=== PATIENT | male | born 1935 | race Caucasian/White ===

== ENCOUNTER 2019-01-31 15:48 | Observation (INO) | payer MEDICARE, OTHER ==
[2019-01-31] MEDS ORDERED: Sodium Chloride 0.9% 10 ML Syringe FLUSH PRN (16:27)
[2019-01-31] MEDS ORDERED: Ondansetron 4 MG Tab.DIS PO PRN (16:27)
[2019-01-31] MEDS: cefTRIAXone 1 GM Vial IVPUSH SCH (17:16)
[2019-01-31] MEDS: Enoxaparin 40 MG/0.4 ML Syringe SUBCUT SCH (17:16)
[2019-01-31 17:23] LABS: CHLORIDE,CL 98 mEq/L (98-106); SODIUM,NA 135 mEq/L (136-145)
[2019-02-01] MEDS ORDERED: Temazepam 15 MG Cap PO PRN (00:11)
[2019-02-01] MEDS ORDERED: Furosemide 20 MG Tab PO SCH (08:00)
[2019-02-01] MEDS ORDERED: Clopidogrel 75 MG Tab PO SCH (08:00)
[2019-02-01] MEDS: **PTOM** metFORMIN 500 MG Tab PO SCH (09:34)
[2019-02-01] MEDS: **PTOM** Aspirin 81 MG Tab.EC PO SCH (09:35)
[2019-02-01] MEDS: CANDESARTAN 4 MG PO SCH (09:35)
[2019-02-01] MEDS: **PTOM** Allopurinol 100 MG Tab PO SCH (09:36)
[2019-02-01] MEDS: TIMOLOL MALEATE 0.5% EYERT SCH (09:37)
[2019-02-01] MEDS: Enoxaparin 40 MG/0.4 ML Syringe SUBCUT SCH (16:35)
[2019-02-01] MEDS: cefTRIAXone 1 GM Vial IVPUSH SCH (16:36)
--- NOTE | 2019-02-01 19:02 | PCM.PN ---
- General Info Date of Service: 02/01/19 Admission Dx/Problem (Free Text): RML Pneumonia, suspect gram negative bacteria Functional Status: Reports: Pain Controlled, Tolerating Diet, Ambulating - Review of Systems General: Reports: Malaise. Denies: Fever, Weakness, Fatigue HEENT: Denies: Ear Pain, Headaches, Sinus Congestion, Rhinitis Pulmonary: Reports: Cough. Denies: Shortness of Breath Cardiovascular: Denies: Chest Pain, Edema, Lightheadedness Gastrointestinal: Denies: Abdominal Pain, Nausea, Vomiting Genitourinary: Reports: No Symptoms Musculoskeletal: Reports: No Symptoms Skin: Reports: No Symptoms Neurological: Reports: No Symptoms - Patient Data Vitals - Most Recent: Last Vital Signs Temp 98.2 F 02/01/19 16:00 Pulse 75 02/01/19 16:00 Resp 20 02/01/19 16:00 BP 168/75 H 02/01/19 16:00 Pulse Ox 95 02/01/19 16:00 Weight - Most Recent: 167 lb 4.8 oz Lab Results Last 24 Hours: Laboratory Results - last 24 hr 01/31/19 02/01/19 02/01/19 Range/Units 20:37 07:23 12:09 POC Glucose 224 H 127 H 99 (75-105) mg/dl Med Orders - Current: Current Medications Allopurinol (Zyloprim) 100 mg PO DAILY [facility] Last Admin: 02/01/19 09:36 Dose: 100 mg Aspirin (Halfprin) 81 mg PO DAILY [facility] Last Admin: 02/01/19 09:35 Dose: 81 mg Atorvastatin Calcium (Lipitor) 20 mg PO BEDTIME [facility] Ceftriaxone Sodium (Rocephin) 1 gm IVPUSH Q24H [facility] Last Admin: 02/01/19 16:36 Dose: 1 gm Enoxaparin Sodium (Lovenox) 40 mg SUBCUT Q24H [facility] Last Admin: 02/01/19 16:35 Dose: 40 mg Latanoprost (Xalatan 0.005% Ophth Soln) 0 ml EYEBOTH BEDTIME [facility] Metformin HCl (Glucophage) 500 mg PO DAILY [facility] Last Admin: 02/01/19 09:34 Dose: 500 mg Ptom Candesartan (4 Mg Tab) 4 mg PO DAILY [facility] Last Admin: 02/01/19 09:35 Dose: 4 mg Ondansetron HCl (Zofran Odt) 4 mg PO Q4H PRN PRN Reason: nausea, able to take PO Sodium Chloride (Saline Flush) 10 ml FLUSH ASDIRECTED PRN PRN Reason: Keep Vein Open Temazepam (Restoril) 15 mg PO BEDTIME PRN PRN Reason: Insomnia Last Admin: 02/01/19 00:22 Dose: 15 mg Timolol Maleate (Timoptic 0.5% Ophth Soln) 0 ml EYERT DAILY [facility] Last Admin: 02/01/19 09:37 Dose: 1 drop Discontinued Medications Clopidogrel Bisulfate (Plavix) 75 mg PO DAILY [facility] Last Admin: 02/01/19 09:39 Dose: Not Given Furosemide (Lasix) 20 mg PO DAILY [facility] Last Admin: 02/01/19 09:39 Dose: Not Given - Exam General: Alert, Oriented HEENT: Mucous Membr. Moist/Azure Neck: Supple Lungs: Decreased Breath Sounds, Crackles (RLL, RML) Cardiovascular: Regular Rate, Regular Rhythm GI/Abdominal Exam: Normal Bowel Sounds, Soft, Non-Tender Extremities: Normal Inspection, No Pedal Edema Skin: Warm, Dry Neurological: No New Focal Deficit - Problem List & Annotations (1) RML pneumonia SNOMED Code(s): 453273345 Code(s): J18.1 - LOBAR PNEUMONIA, UNSPECIFIED ORGANISM Status: Acute Priority: High Current Visit: Yes Qualifiers: Pneumonia type: due to other aerobic Gram-negative bacteria Qualified Code( s): J15.6 - Pneumonia due to other Gram-negative bacteria - Problem List Review Problem List Initiated/Reviewed/Updated: Yes - My Orders Last 24 Hours: My Active Orders 02/02/19 05:11 BASIC METABOLIC PANEL,BMP [CHEM] AM C-REACTIVE PROTEIN [CHEM] AM CBC WITH AUTO DIFF [HEME] AM - Assessment Assessment:: RML Pneumonia - Plan Plan:: Patient doing well. Is ambulating well in hallways without increased shortness of breath. He has occasional cough, nonproductive. Oxygen sats are greater than 90%. Lung sounds note fine crackles in right mid and lower lobe. Afebrile. Blood pressure is up some this am. 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 Does not take his blood pressure med due to this as well. WBC is normal at 7.6, CRP 1.2. Will continue with IV Ceftriaxone. Ambulate in halls. Probable discharge home tomorrow.
[2019-02-01] MEDS ORDERED: **PTOM** atorvaSTATin 20 MG Tab PO SCH (20:00)
[2019-02-01] MEDS ORDERED: LATANOPROST 0.005% EYEBOTH SCH (20:00)
[2019-02-02 07:20] LABS: CHLORIDE,CL 99 mEq/L (98-106); SODIUM,NA 136 mEq/L (136-145)
[2019-02-02] MEDS: TIMOLOL MALEATE 0.5% EYERT SCH (07:45)
[2019-02-02] MEDS: **PTOM** Aspirin 81 MG Tab.EC PO SCH (07:46)
[2019-02-02] MEDS: CANDESARTAN 4 MG PO SCH (07:46)
[2019-02-02] MEDS: **PTOM** metFORMIN 500 MG Tab PO SCH (07:46)
[2019-02-02] MEDS: **PTOM** Allopurinol 100 MG Tab PO SCH (07:47)
--- NOTE | 2019-02-02 16:25 | PCM.DCSUM1 ---
Discharge Summary - Hospital Course Diagnosis: Stroke: No Modified [place] Scale: No Symptoms at All Modified [place] Scale Score: 0 - Discharge Data Discharge Date: 02/02/19 Discharge Disposition: Home, Self-Care 01 Condition: Good - Discharge Diagnosis/Problem(s) (1) RML pneumonia SNOMED Code(s): 924856160 ICD Code: J18.1 - LOBAR PNEUMONIA, UNSPECIFIED ORGANISM Status: Acute Priority: High Qualifiers: Pneumonia type: due to other aerobic Gram-negative bacteria Qualified Code( s): J15.6 - Pneumonia due to other Gram-negative bacteria - Patient Summary/Data Complications: none - Patient Instructions Diet: Usual Diet as Tolerated Activity: As Tolerated - Discharge Plan *PRESCRIPTION DRUG MONITORING PROGRAM REVIEWED*: No *COPY OF PRESCRIPTION DRUG MONITORING REPORT IN PATIENT LUCY: No Prescriptions/Med Rec: Cefuroxime Axetil [Ceftin] 250 mg PO BID #20 tablet Home Medications: Home Meds Allopurinol [Zyloprim] 100 mg PO DAILY 01/31/19 [History] Aspirin [Ecotrin] 81 mg PO DAILY 01/31/19 [History] Latanoprost/Pf [Latanoprost 0.005% Eye Drop] 7.5 ml EYEBOTH DAILY 01/31/19 [ History] Timolol Maleate [Timoptic 0.5% Ophth Soln] 5 ml EYERT DAILY 01/31/19 [History] metFORMIN [Glucophage] 500 mg PO DAILY 01/31/19 [History] Candesartan Cilexetil 4 mg PO DAILY 02/01/19 [History] atorvaSTATin [Lipitor] 20 mg PO BEDTIME 02/01/19 [History] Cefuroxime Axetil [Ceftin] 250 mg PO BID #20 tablet 02/02/19 [Rx] Patient Handouts: Community-Acquired Pneumonia, Adult, [id number] Referrals: Teresa Swann PA-C [Primary Care Provider] - (Follow up with Teresa Swann in 2 weeks. Chest xray prior to visit) - Discharge Summary/Plan Comment DC Time >30 min.: No - General Info Date of Service: 02/02/19 Admission Dx/Problem (Free Text: RML Pneumonia, suspect gram negative bacteria Functional Status: Reports: Pain Controlled, Tolerating Diet, Ambulating, Urinating - Review of Systems General: Denies: Fever, Weakness, Fatigue, Malaise HEENT: Reports: Rhinitis. Denies: Ear Pain, Sinus Congestion Pulmonary: Reports: Cough. Denies: Shortness of Breath, Wheezing Cardiovascular: Denies: Chest Pain, Edema, Lightheadedness Gastrointestinal: Denies: Abdominal Pain, Nausea, Vomiting Genitourinary: Reports: No Symptoms Musculoskeletal: Reports: No Symptoms Skin: Reports: No Symptoms Neurological: Reports: No Symptoms - Patient Data Vitals - Most Recent: Last Vital Signs Temp 96.8 F 02/02/19 07:44 Pulse 75 02/02/19 07:44 Resp 20 02/02/19 07:44 BP 165/68 H 02/02/19 07:44 Pulse Ox 95 02/02/19 07:44 Weight - Most Recent: 167 lb 4.8 oz Lab Results - Last 24 hrs: Laboratory Results - last 24 hr 02/01/19 02/02/19 02/02/19 Range/Units 20:16 06:45 06:45 WBC 7.4 (5.0-10.0) 10^3/uL RBC 4.13 L (4.50-6.00) 10^6/uL Hgb 12.2 L (14.0-18.0) g/dL Hct 35.8 L (40.0-54.0) % MCV 86.7 (82.0-94.0) fL MCH 29.5 (27.0-32.0) pg MCHC 34.1 (33.0-38.0) g/dL RDW Coeff of Belkys 12.7 (11.0-15.0) % Plt Count 225 (150-400) 10^3/uL Add Manual Diff Yes Neutrophils % (Manual) 69 (35-85) % Band Neutrophils % 1 (0-5) % Lymphocytes % (Manual) 10 L (21-55) % Monocytes % (Manual) 3 (2-12) % Eosinophils % (Manual) 17 H (0-5) % Sodium 136 (136-145) mEq/L Potassium 3.9 (3.5-5.0) mEq/L Chloride 99 (98-106) mEq/L Carbon Dioxide 27 (21-32) mmol/L BUN 16 (7-18) mg/dL Creatinine 1.0 (0.7-1.3) mg/dL Est Cr Clr Drug Dosing 52.28 mL/min Estimated GFR (MDRD) > 60 (>=60) mL/min Glucose 131 H (75-99) mg/dL POC Glucose 152 H (75-105) mg/dl Calcium 9.3 (8.4-10.1) mg/dL C-Reactive Protein 1.2 H (0.2-0.8) mg/dL 02/02/19 Range/Units 07:40 WBC (5.0-10.0) 10^3/uL RBC (4.50-6.00) 10^6/uL Hgb (14.0-18.0) g/dL Hct (40.0-54.0) % MCV (82.0-94.0) fL MCH (27.0-32.0) pg MCHC (33.0-38.0) g/dL RDW Coeff of Belkys (11.0-15.0) % Plt Count (150-400) 10^3/uL Add Manual Diff Neutrophils % (Manual) (35-85) % Band Neutrophils % (0-5) % Lymphocytes % (Manual) (21-55) % Monocytes % (Manual) (2-12) % Eosinophils % (Manual) (0-5) % Sodium (136-145) mEq/L Potassium (3.5-5.0) mEq/L Chloride (98-106) mEq/L Carbon Dioxide (21-32) mmol/L BUN (7-18) mg/dL Creatinine (0.7-1.3) mg/dL Est Cr Clr Drug Dosing mL/min Estimated GFR (MDRD) (>=60) mL/min Glucose (75-99) mg/dL POC Glucose 122 H (75-105) mg/dl Calcium (8.4-10.1) mg/dL C-Reactive Protein (0.2-0.8) mg/dL Med Orders - Current: Current Medications Discontinued Medications Allopurinol (Zyloprim) 100 mg PO DAILY [facility] Last Admin: 02/02/19 07:47 Dose: 100 mg Aspirin (Halfprin) 81 mg PO DAILY [facility] Last Admin: 02/02/19 07:46 Dose: 81 mg Atorvastatin Calcium (Lipitor) 20 mg PO BEDTIME [facility] Last Admin: 02/01/19 20:00 Dose: 20 mg Ceftriaxone Sodium (Rocephin) 1 gm IVPUSH Q24H [facility] Last Admin: 02/01/19 16:36 Dose: 1 gm Clopidogrel Bisulfate (Plavix) 75 mg PO DAILY [facility] Last Admin: 02/01/19 09:39 Dose: Not Given Enoxaparin Sodium (Lovenox) 40 mg SUBCUT Q24H [facility] Last Admin: 02/01/19 16:35 Dose: 40 mg Furosemide (Lasix) 20 mg PO DAILY [facility] Last Admin: 02/01/19 09:39 Dose: Not Given Latanoprost (Xalatan 0.005% Ophth Soln) 0 ml EYEBOTH BEDTIME [facility] Last Admin: 02/01/19 19:58 Dose: 1 drop Metformin HCl (Glucophage) 500 mg PO DAILY [facility] Last Admin: 02/02/19 07:46 Dose: 500 mg Ptom Candesartan (4 Mg Tab) 4 mg PO DAILY [facility] Last Admin: 02/02/19 07:46 Dose: 4 mg Ondansetron HCl (Zofran Odt) 4 mg PO Q4H PRN PRN Reason: nausea, able to take PO Sodium Chloride (Saline Flush) 10 ml FLUSH ASDIRECTED PRN PRN Reason: Keep Vein Open Temazepam (Restoril) 15 mg PO BEDTIME PRN PRN Reason: Insomnia Last Admin: 02/01/19 00:22 Dose: 15 mg Timolol Maleate (Timoptic 0.5% Ophth Soln) 0 ml EYERT DAILY [facility] Last Admin: 02/02/19 07:45 Dose: 1 drop - Exam General: Reports: Alert, Oriented HEENT: Reports: Mucous Membr. Moist/[place] Neck: Reports: Supple Lungs: Reports: Clear to Auscultation, Normal Respiratory Effort Cardiovascular: Reports: Regular Rate, Regular Rhythm GI/Abdominal Exam: Normal Bowel Sounds, Soft, Non-Tender Extremities: Normal Inspection, No Pedal Edema Skin: Reports: Warm, Dry Neurological: Reports: No New Focal Deficit
== END 2019-02-02 10:00 | disposition home or self-care (01) ==
LOC: UNDOADMOB 15:48 → CC.MS 15:48
PROVIDERS: ADMIT Family Medicine; ATTEND Family Medicine
DX: J15.6 Pneumonia due to other Gram-negative bacteria (principal); I10 Essential (primary) hypertension; E11.9 Type 2 diabetes mellitus without complications; E78.5 Hyperlipidemia, unspecified; M10.9 Gout, unspecified; Z79.82 Long term (current) use of aspirin; Z79.02 Long term (current) use of antithrombotics/antiplatelets; Z79.84 Long term (current) use of oral hypoglycemic drugs; Z79.899 Other long term (current) drug therapy
CPT/HCPCS: 36415; 71046; 80048; 82962; 85025; 86140; 93005; 96372; 96374; 96376; A9270-GY; G0378; J0696; J1650

== ENCOUNTER 2024-03-20 10:33 | Observation (INO) | payer MEDICARE, OTHER ==
[2024-03-20 10:59] LABS: BASOPHILS ABSOLUTE AUTO 0.03 10^3/uL (0.00-0.50); BASOPHILS PERCENT AUTO 0.3 % (0-1); HEMATOCRIT 40.5 % (42.0-52.0); IMMATURE GRAN ABSOLUTE AUTO 0.01 10^3/uL (0.00-0.49); IMMATURE GRAN PERCENT AUTO 0.1 % (0.0-4.9); LYMPHOCYTES ABSOLUTE AUTO 0.93 10^3/uL (0.60-5.00); LYMPHOCYTES PERCENT AUTO 9.3 % (24-44); MEAN CORPUSCULAR HEMOGLOBIN 29.7 pg (27.0-32.0); MEAN CORPUSCULAR HGB CONC 34.6 g/dL (32.0-36.0); MEAN CORPUSCULAR VOLUME 85.8 fL (83.0-97.0); MONOCYTES ABSOLUTE AUTO 0.94 10^3/uL (0.00-1.50); MONOCYTES PERCENT AUTO 9.4 % (0-10); NEUTROPHILS ABSOLUTE AUTO 7.98 x10^3/uL (1.80-8.00); NEUTROPHILS PERCENT AUTO 79.9 % (41-71); PLATELET COUNT,PLT 168 10^3/uL (150-400); RED BLOOD CELL COUNT 4.72 x10^6/uL (4.50-6.00)
[2024-03-20 11:14] LABS: CALCIUM IONIZED,POC 4.8 mmol/L (4.6-5.3); CREATININE,POC 0.95 mg/dL (0.51-1.19); POTASSIUM,POC 4.1 mmol/L (3.5-4.5)
[2024-03-20 11:24] LABS: APPEARANCE,URINE CLEAR (CLEAR); BILIRUBIN,URINE NEGATIVE (NEGATIVE); COLOR,URINE YELLOW (YELLOW); GLUCOSE,URINE 500 mg/dL (NEGATIVE); KETONES,URINE 40 mg/dL (NEGATIVE); LEUKOCYTE ESTERASE,URINE NEGATIVE (NEGATIVE); NITRITE,URINE NEGATIVE (NEGATIVE); OCCULT BLOOD,URINE NEGATIVE (NEGATIVE); PROTEIN,URINE TRACE mg/dL (NEGATIVE); UROBILINOGEN,URINE 0.2 EU/dL (0.2-1.0)
[2024-03-20 11:28] LABS: RBC,URINE 0-5 /HPF (0-5); WBC,URINE NOT SEEN /HPF (0-5)
[2024-03-20 11:29] LABS: BACTERIA,URINE NOT SEEN /HPF (NOT SEEN); MUCUS,URINE FEW /HPF (NOT SEEN); SQUAMOUS EPITHELIAL CELLS,UR FEW /HPF (NOT SEEN)
[2024-03-20] MEDS ORDERED: 50% Dextrose in Water 50 ML Syringe IVPUSH PRN ×3 (11:47→21:09)
[2024-03-20] MEDS ORDERED: Glucagon,Human Recombinant 1 MG Vial IM PRN ×3 (11:47→21:09)
[2024-03-20] MEDS: Insulin Regular, Human 100 Units/ML 3 ML Vial IV ONE (12:22)
[2024-03-20] MEDS: Sodium Chloride 0.9% 1,000 ML IV SCH ×2 (12:27→23:06)
[2024-03-20] MEDS ORDERED: Ondansetron 4 MG Tab.DIS PO PRN (14:37)
[2024-03-20] MEDS ORDERED: Ondansetron 4 MG/2 ML SDV IV PRN (14:37)
[2024-03-20] MEDS ORDERED: Docusate Sodium 100 MG Cap PO PRN (14:37)
[2024-03-20] MEDS: Enoxaparin 40 MG/0.4 ML Syringe SUBCUT SCH (15:57)
[2024-03-20] MEDS: Latanoprost 0.005% Ophth Soln 2.5 ML Bottle EYEBOTH SCH (20:02)
[2024-03-20] MEDS: Acetaminophen 325 MG Tab PO PRN (20:02)
[2024-03-20] MEDS: Metoprolol Succinate 25 MG Tab.ER PO SCH (20:37)
[2024-03-20] MEDS: Insulin Regular, Human 100 Units/ML 3 ML Vial SUBCUT SCH (21:14)
[2024-03-20] MEDS: Insulin Regular, Human 100 Units/ML 3 ML Vial SUBCUT ONE (21:24)
[2024-03-21] MEDS: Ascorbic Acid 500 MG Tab PO SCH (07:18)
[2024-03-21] MEDS: Loratadine 10 MG Tab PO SCH (07:18)
[2024-03-21] MEDS: amLODIPine 2.5 MG Tab PO SCH (07:19)
[2024-03-21] MEDS: Allopurinol 100 MG Tab PO SCH (07:19)
[2024-03-21] MEDS: Montelukast 10 MG Tab PO SCH (07:19)
[2024-03-21] MEDS: Spironolactone 25 MG Tab PO SCH (07:19)
[2024-03-21] MEDS: Clopidogrel 75 MG Tab PO SCH (07:20)
[2024-03-21] MEDS: Enoxaparin 40 MG/0.4 ML Syringe SUBCUT SCH (07:20)
[2024-03-21] MEDS: Aspirin 81 MG Tab.EC PO SCH (07:20)
[2024-03-21] MEDS: Insulin Regular, Human 100 Units/ML 3 ML Vial SUBCUT SCH (07:55)
[2024-03-21] MEDS ORDERED: Semaglutide [Rybelsus] 7 MG Tablet PO SCH (08:00)
[2024-03-21] MEDS: Timolol Maleate 0.5% Ophth Soln 5 ML Bottle EYERT SCH (08:05)
[2024-03-21] MEDS: Losartan 100 MG Tab PO SCH (08:05)
[2024-03-21 08:34] LABS: BASOPHILS ABSOLUTE AUTO 0.04 10^3/uL (0.00-0.50); BASOPHILS PERCENT AUTO 0.5 % (0-1); EOSINOPHILS ABSOLUTE AUTO 0.12 10^3/uL (0.00-1.50); EOSINOPHILS PERCENT AUTO 1.5 % (0-6); HEMATOCRIT 36.3 % (42.0-52.0); HEMOGLOBIN 12.7 g/dL (14.0-18.0); IMMATURE GRAN ABSOLUTE AUTO 0.03 10^3/uL (0.00-0.49); IMMATURE GRAN PERCENT AUTO 0.4 % (0.0-4.9); LYMPHOCYTES ABSOLUTE AUTO 0.62 10^3/uL (0.60-5.00); LYMPHOCYTES PERCENT AUTO 7.5 % (24-44); MEAN CORPUSCULAR HEMOGLOBIN 30.2 pg (27.0-32.0); MEAN CORPUSCULAR VOLUME 86.4 fL (83.0-97.0); MONOCYTES PERCENT AUTO 9.7 % (0-10); NEUTROPHILS ABSOLUTE AUTO 6.62 x10^3/uL (1.80-8.00); NEUTROPHILS PERCENT AUTO 80.4 % (41-71); PLATELET COUNT,PLT 141 10^3/uL (150-400); WHITE BLOOD CELL COUNT,WBC 8.2 10^3/uL (4.0-11.0)
[2024-03-21 10:03] LABS: ALBUMIN 3.1 g/dL (3.4-5.0); BILIRUBIN TOTAL 0.9 mg/dL (0.0-1.0); C-REACTIVE PROTEIN 11.1 mg/dL (<=0.50); CALCIUM 8.9 mg/dL (8.4-10.1); EST CRCL DRUG DOSING (CG) 46.13 mL/min; POTASSIUM,K 3.8 mEq/L (3.5-5.0); PROTEIN TOTAL,TP 6.1 g/dL (6.4-8.2)
[2024-03-21] MEDS: Saxagliptin 2.5 MG Tab PO SCH (12:12)
== END 2024-03-21 20:05 ==
LOC: CC.ED 10:33 → UNDOADMOB 14:17 → CC.MS 14:17
PROVIDERS: ADMIT Nurse Practitioner Family; ATTEND Nurse Practitioner Family
DX: E11.65 Type 2 diabetes mellitus with hyperglycemia (principal); M62.838 Other muscle spasm; I10 Essential (primary) hypertension; Z79.82 Long term (current) use of aspirin; Z79.899 Other long term (current) drug therapy; Z91.013 Allergy to seafood
CPT/HCPCS: 36415; 70450; 71046; 72125; 72128; 80047; 80053; 81001; 82947; 83036; 85025; 86060; 86140; 87651-QW; 96360; 96361; 96372; 97161-GP; 99285-25; A9270-GY; G0378; J1650; J1815-GY; J7030